=== PATIENT | male | born 1955 | race Caucasian/White ===

== ENCOUNTER 2017-05-18 09:40 | Outpatient (CLI) | payer BC ==
--- NOTE | 2017-05-18 14:48 | MRI ---
MRI OF THE LEFT KNEE PERFORMED WITHOUT CONTRAST ENHANCEMENT: HISTORY: Injured left knee a few years ago. Fell on patella. Still having persistent pain. FINDINGS: The anterior as well as posterior cruciate ligaments appear intact. The medial and lateral menisci are normal in shape and appearance. The medial and lateral collateral ligaments and the iliotibial band regions are unremarkable. The patellar articular cartilage shows some increased signal change involving the medial facet with some subchondral marrow edema change. There is also some articular cartilage loss and fissuring inv olving the central-most aspect of the medial femoral condyle, near the intercondylar notch. There a re some subchondral marrow edema changes in this area. The medial and lateral patellar retinaculum and patellar tendon are normal. Some increased signal change within the distal quadriceps tendon schmitt ggests some quadriceps tendinosis. IMPRESSION: 1. Findings suggesting tendinosis of the quadriceps tendon. 2. Areas of articular cartilage loss and some subchondral marrow edema changes involving the medial femoral condyle and medial facet of the patella. POS: [facility] [place]
== END 2017-05-18 09:41 | disposition home or self-care (01) ==
LOC: SCSMRI 09:40
PROVIDERS: ATTEND Family Medicine
DX: M23.92 Unspecified internal derangement of left knee (principal); R60.0 Localized edema

== ENCOUNTER 2019-08-15 08:00 | Emergency (ER) | payer BC, OTHER | END 2019-08-15 09:26 | disposition home or self-care (01) | LOC: ERS 08:00 | DX: S80.02XA Contusion of left knee, initial encounter (principal); S60.812A Abrasion of left wrist, initial encounter; S40.212A Abrasion of left shoulder, initial encounter; F17.220 Nicotine dependence, chewing tobacco, uncomplicated; W01.0XXA Fall on same level from slipping, tripping and stumbling without subsequent striking against object, initial encounter | CPT/HCPCS: 99283 ==

== ENCOUNTER 2022-05-13 13:59 | Outpatient (CLI) | payer MEDICARE | END 2022-05-13 14:00 | disposition home or self-care (01) | LOC: TBSIIMAG 13:59 | PROVIDERS: ATTEND Surgery | DX: S22.009D Unspecified fracture of unspecified thoracic vertebra, subsequent encounter for fracture with routine healing (principal); M43.16 Spondylolisthesis, lumbar region | CPT/HCPCS: 72100 ==

== ENCOUNTER 2022-09-02 13:44 | Outpatient (CLI) | payer OTHER | END 2022-09-02 13:45 | disposition home or self-care (01) | LOC: TBSIIMAG 13:44 | PROVIDERS: ATTEND Physical Medicine & Rehabilitation | DX: S32.019D Unspecified fracture of first lumbar vertebra, subsequent encounter for fracture with routine healing (principal) | CPT/HCPCS: 72100 ==